=== PATIENT | male | born 1990 | race Hispanic/Latino ===

== ENCOUNTER → 2018-04-23 | Outpatient (CLI) | payer BC ==
--- NOTE | 2018-04-23 21:22 | Diagnostic Imaging Report ---
TECHNIQUE: Magnetic resonance imaging of the RIGHT ELBOW was performed WITHOUT injected contrast. HISTORY: Right elbow pain COMPARISON: None available. FINDINGS: Ligaments and tendons: The medial and lateral collateral ligament complexes are intact. Tendinosis of the common extensor origin with thickening and intermediate signal. No tear. Common flexor origin is intact. Complete tear of the long head biceps tendon with proximal retraction measuring approximately 8 cm. The triceps tendon is intact. Brachialis is intact. Ulnar nerve: Normal, and in groove. Bone and bone marrow: No focal or infiltrative bone marrow replacing abnormality. No acute fracture. Articular cartilage: No focal lesions are seen. Soft tissues: Otherwise, unremarkable. IMPRESSION: Long head biceps tendon complete tear from the radial insertion with 8 cm proximal retraction. Signed by: Dr. Vickey Alexandra M.D. on 04/23/2018 8:07 PM
== END ==
LOC: MRI 15:50
PROVIDERS: ATTEND Specialist
DX: S46.211A Strain of muscle, fascia and tendon of other parts of biceps, right arm, initial encounter (principal)

== ENCOUNTER → 2018-05-01 | Day surgery (SDC) | payer BC ==
[~2018-05-01] MED LIST: ACETAMINOPHEN/CODEINE 300MG - 30MG TAB ONE; BACITRACIN 50,000 UNIT VIAL ONE; BUPIVACAINE 0.5%/EPI 30 ML SDV INJ ONE; CEFAZOLIN SOD 2 GM/D5W 50ML 50 ML IV ONE; DEXAMETHASONE SOD PHOS INJ 4 MG/ML VIAL IV ONE; FENTANYL CITRATE/PF 100MCG/2 ML INJ ONE; HYDROMORPHONE 1MG/1ML INJ ONE; KETAMINE HCL INJ 50 MG/ML 10 ML VIAL ONE; KETOROLAC TROMETHAMINE 30 MG/ML VIAL IV ONE; LIDOCAINE 2% /EPINEPHRINE 20 ML SDV INJ ONE; LIDOCAINE HCL 2% LOCAL INJ 5 ML SDV VIAL INJ ONE; METOCLOPRAMIDE HCL 10 MG/2ML VIAL ONE; MIDAZOLAM HCL 2 MG/2 ML VIAL ONE; ONDANSETRON HCL INJ 2 MG/ML VIAL IV ONE; ONDANSETRON HCL INJ 2 MG/ML VIAL ONE; PROMETHAZINE HCL (IM) 25 MG/ML VIAL ONE; PROPOFOL IV EMULSION 10 MG/ML 20 ML VIAL IV ONE; ROPIVACAINE 0.5% 5 MG/ML 30 ML SDV ONE; SEVOFLURANE INHAL SOLN 250 ML PEN BTL INH ONE
[2018-05-01 16:30] VITALS: BP 122/75
--- NOTE | 2018-05-02 18:04 | Operative Report ---
DATE OF PROCEDURE: May 01, 2018 PREOPERATIVE DIAGNOSIS: Right distal biceps tendon rupture. POSTOPERATIVE DIAGNOSIS: Right distal biceps tendon rupture. OPERATION/PROCEDURE PERFORMED: The patient underwent a right distal biceps reconstruction. RISK AND COMPLIANCE ANALYTICS DIRECTOR: None. ANESTHESIA: General endotracheal intubation anesthesia. IV FLUIDS: Per the anesthesia record. BRIEF DESCRIPTION OF THE PATIENT'S OPERATIVE PROCEDURE: Mr. Mccarty was taken to the operating room and placed in the supine position on the operating table. Following induction of general anesthesia, as well as endotracheal intubation, the patient's right upper extremity was examined under anesthesia. He was found to have a palpable defect in the antecubital fossa of the right arm compared to the left. His biceps tendon was not palpable. Preoperative evaluation of the arm had confirmed a distal biceps tendon rupture with proximal migration of the biceps tendon stump. The patient's upper extremity was prepped and draped in the standard surgical fashion. The case was begun by creating an incision in the crease of the antecubital fossa. This incision was carried through skin only. Blunt dissection was used to deepen the incision to the fascia of the arm and forearm. The bicipital aponeurosis was identified and tracking laterally, the biceps tendon rupture was easily identified. This biceps tendon was somewhat scarred into the surrounding soft tissues. The biceps was freed from the surrounding soft tissues, as well as the lacertus fibrosis. Digital mobilization of the tendon and muscle were also performed at this time to provide further length to the tendon. The end of the biceps tendon was then shaped to allow for future attachment to the radial tuberosity. FiberWire suture was then woven through the biceps tendon in a whipstitch type fashion. A Sarot was then placed along the pathway of the biceps tendon. Probing of the forearm with the arm held in supination identified the pathway of the biceps tendon. A Sarot was placed first in contact with the ulna edge of the radius at the level of the bicipital tubercle, and then passed inferior to the radius and out laterally to determine the positioning of the lateral forearm incision. This incision was carried through skin only. Blunt dissection was used to deepen the incision. Blunt dissection was then used to deepen the incision to the level of proximal radial tuberosity. The radial tuberosity was then identified with the forearm in pronation. A bur was used to create a channel for the biceps tendon. Three drill holes were then placed in the proximal radius at the level of the radial tubercle. The sutures from the biceps tendon were then passed along the pathway for the biceps and out through the lateral incision. The biceps tendon was then advanced into the forearm with the arm in pronation. The sutures were then passed through the previously drilled holes and the bicipital tuberosity. The biceps tendon was then advanced and seen visually to enter the proximal radius at the level of the bicipital tuberosity. These sutures were then tied firmly over the radius with the arm in slight supination. This resulted in reapproximation of the patient's biceps tendon into the greater tuberosity. The arm was placed through a range of motion and the repair was found to be stable. The volar and lateral incisions were then closed in a multilayer fashion. Sterile dressings were applied. The patient was provided a posterior splint, and awakened and taken to the postanesthesia care in stable condition. Job#: [id number] JOHN
== END | disposition home or self-care (01) ==
LOC: OR 08:54
PROVIDERS: ATTEND Specialist
DX: M66.321 Spontaneous rupture of flexor tendons, right upper arm (principal); Z68.35 Body mass index [BMI] 35.0-35.9, adult
CPT/HCPCS: 24342; C1713; J1100; J1170; J1885; J2001 ×2; J2250; J2405; J2550; J2765; J2795

== ENCOUNTER → 2018-06-19 | Outpatient (RCR) | payer BC | LOC: PT 15:47 | PROVIDERS: ATTEND Specialist | DX: S46.111A Strain of muscle, fascia and tendon of long head of biceps, right arm, initial encounter (principal); M25.521 Pain in right elbow ==

== ENCOUNTER 2018-07-18 16:54 | Outpatient (RCR) | payer BC | END 2018-07-19 | LOC: PT 16:54 | PROVIDERS: ATTEND Specialist | DX: S46.121D Laceration of muscle, fascia and tendon of long head of biceps, right arm, subsequent encounter (principal); M62.81 Muscle weakness (generalized) ==

== ENCOUNTER 2018-08-05 16:43 | Outpatient (RCR) | payer BC | END 2018-08-19 | LOC: PT 16:43 | PROVIDERS: ATTEND Specialist | DX: S46.121D Laceration of muscle, fascia and tendon of long head of biceps, right arm, subsequent encounter (principal); M62.81 Muscle weakness (generalized) ==